=== PATIENT | female | born 1985 | race Caucasian/White ===

== ENCOUNTER 2021-02-13 05:41 | Inpatient (IN) ==
--- NOTE | 2021-02-12 14:46 | History and Physical Report ---
The patient is scheduled for section at [facility] on 02/13/2021. HISTORY OF PRESENT ILLNESS: This is a 35-year-old G2, P1, due date is 02/14/2021, patient is schedul ed for section in [facility] on 02/13/2021 at which time she will be 39 we eks in 6 days. Patient's course has been unremarkable. She had previous section, and wishes to have repeat . course has been unremarkable. LABS: Blood type B positive, antibody negative, rubella immune, GBS negative. PAST MEDICAL HISTORY: Patient has history of hypothyroidism, migraines, and anxiety. PAST SURGICAL HISTORY: The patient has had one previous section. She had a cholecystectomy as well as appendectomy, both in 2012. SOCIAL HISTORY: Denies tobacco, drug or alcohol use. FAMILY HISTORY: Noncontributory. PHYSICAL EXAMINATION: GENERAL: Well-developed, well-nourished white female in no acute distress. HEART: S1, S2 heard. Regular rhythm and rate. LUNGS: Clear to auscultation bilaterally. ABDOMEN: Gravid. EXTREMITIES: No cyanosis, clubbing or edema. ASSESSMENT AND PLAN: A 35-year-old G2, P1 at term wishes to have repeat section. Risks and benefits of surgery are discussed as did trial of labor after was also discussed. Patient wishes to proceed with . Consent will be signed on day of surgery with the attending oscar edmonds deputy probation officer. Job ID: [id number]
--- NOTE | 2021-02-12 16:19 | Anesthesiology Consultation ---
Date of Service February 12, 2021 Assessment & Plan (1) Encounter for pre-operative examination: Chart Review Chart Review: receiving operator initiated Per nursing assessment 02/12/2021, patient denies any recent travel. No known Covid infection in the past 90 days. Pt is vaccinated for Covid. No known Covid positive contacts or Covid related symptoms. Preop Covid testing 02/09/21=negative History Surgery Operation Date: 02/13/21 07:30 Proposed Procedures p Repeat Section - Carla Younger MD Height/Weight Height: 5 ft 6 in Weight: 102.512 kg Allergies Allergy/AdvReac Type Severity Reaction Status Date / Time banana Allergy Severe Swelling Verified 02/12/21 15:47 of Lip/Tongue/Throat kiwi Allergy Severe Swelling Verified 02/12/21 15:47 of Lip/Tongue/Throat sulfamethoxazole Allergy Intermediate Hives Verified 02/12/21 15:47 [From Bactrim] trimethoprim [From Bactrim] Allergy Intermediate Hives Verified 02/12/21 15:47 adhesive tape Allergy Mild skin Verified 02/12/21 15:47 sensitivity mammal products Allergy Mild Gastrointestinal Uncoded 02/12/21 15:47 Upset Medications Home Medications Medication Instructions Recorded Confirmed Last Taken bupropion HCl 100 mg tablet,12 hr 100 mg PO QAM 10/09/20 02/12/21 10/09/20 08:00 sustained-release (Wellbutrin SR) epinephrine 0.3 mg/0.3 mL 0.3 mg IM UD PRN 10/09/20 02/12/21 Unknown injection, auto-injector levothyroxine 112 mcg tablet 112 mcg PO DAILY 10/09/20 02/12/21 10/09/20 07:00 (Synthroid) ondansetron HCl 4 mg tablet 4 mg PO Q6H PRN 10/09/20 02/12/21 10/09/20 20:00 (Zofran) prenat.vits,chun,mct-ukwv-ntiob 1 tab PO DAILY 10/09/20 02/12/21 Unknown lorazepam 0.5 mg tablet 0.25 mg PO DAILY PRN 02/12/21 02/12/21 Unknown omeprazole 20 mg tablet,delayed 20 mg PO HS 02/12/21 02/12/21 Unknown release Past Medical History Medical History Anxiety and depression Arthritis SPINE AREA Endometriosis Esophageal reflux History of kidney stones Hypothyroidism Iron deficiency Migraine Past Family History Family History Sister Family history of diabetes mellitus Other No family history of adverse response to anesthesia Past Surgical History Surgical History History of delivery X 1 History of cholecystectomy History of colonoscopy History of cystoscopy FOR KIDNEY STONES WITH STENTS History of esophagogastroduodenoscopy (EGD) History of laparoscopy Hx of appendectomy [place] teeth removed Social History Smoking Status: Never smoker Hx Alcohol Use: No Hx Substance Use: No substance use type: does not use
[2021-02-13] MEDS ORDERED: CITRIC ACID/SODIUM CITRATE 15 ML UDC PO SCH (06:00)
[2021-02-13] MEDS ORDERED: ceFAZolin 2000MG 2,000 MG/15 ML SYR IV SCH (06:15)
[2021-02-13] MEDS: LACTATED RINGER'S 1,000 ML IV SCH ×2 (06:18→07:10)
[2021-02-13 06:37] LABS: Basophils # (auto) 0.01 K/uL (0-0.2); Basophils % (auto) 0.1 %; Eosinophils # (auto) 0.02 K/uL (0-0.5); Eosinophils % (auto) 0.1 %; Hematocrit (blood only) 31.2 % (37-47); Hemoglobin 9.5 g/dL (12.0-16.0); Immature Granulocytes # (auto) 0.07 K/uL (0.00-0.02); Immature Granulocytes % (auto) 0.5 %; Lymphocytes # (auto) 2.63 K/uL (1.2-3.4); Lymphocytes % (auto) 19.1 %; Mean Corpuscular Hemoglobin 24.1 pg (25-34); Mean Platelet Volume 11.5 fL (7.4-10.4); Monocytes # (auto) 0.77 K/uL (0.11-0.59); Monocytes % (auto) 5.6 %; Neutrophils # (auto) 10.26 K/uL (1.4-6.5); Neutrophils % (auto) 74.6 %; Platelet Count 276 K/uL (130-400); RDW Coefficient of Variation 15.9 % (11.5-14.5); RDW Standard Deviation 46.2 fL (36.4-46.3); Red Blood Count 3.95 M/uL (4.2-5.4); White Blood Count 13.76 K/uL (4.8-10.8)
[2021-02-13 06:46] LABS: Mean Corpuscular Hgb Conc 30.4 g/dL (32-36)
[2021-02-13] MEDS ORDERED: MoRPHine SULFATE PF 1 MG/ML 10 ML AMP/VIAL ONE (06:47)
--- NOTE | 2021-02-13 07:30 | History & Physical Bridge Note ---
Date of Service February 13, 2021 History & Physical Bridge Note I have examined the patient, reviewed the History & Physical and in the interval since the performance of the History & Physical I have noted the following changes of clinical significance: no changes noted She has signed an informed consent.
[2021-02-13] MEDS ORDERED: OXYTOCIN 10 UNITS/ML VIAL ONE (07:48)
[2021-02-13] MEDS ORDERED: PHENYLEPHRINE 100MCG/ML 5ML SYR ONE (07:48)
[2021-02-13] MEDS ORDERED: ONDANSETRON INJ 2 MG/ML 2 ML VIAL ONE ×2 (07:48→08:39)
[2021-02-13] MEDS ORDERED: NALOXONE HCL 1 MG in SODIUM CHLORIDE 0.9% 1000ML 1,000 ML IV PRN (08:34)
[2021-02-13] MEDS ORDERED: NALOXONE HCL 0.08 MG in SYRINGE 1.8 ML IV PRN (08:34)
[2021-02-13] MEDS ORDERED: MoRPHine SULFATE PF 1 MG/ML 10 ML AMP/VIAL INT SPINAL ONE (08:34)
[2021-02-13] MEDS ORDERED: ONDANSETRON INJ 2 MG/ML 2 ML VIAL IV PRN (08:34)
[2021-02-13] MEDS ORDERED: ePHEDrine sulfate 50 MG/ML AMP IV PRN (08:34)
[2021-02-13] MEDS ORDERED: PROMETHAZINE HCL 12.5 MG in SODIUM CHLORIDE 0.9% 50 ML IV PRN (08:34)
[2021-02-13] MEDS ORDERED: MoRPHine SULFATE 2 MG/ML CARP IV PRN (08:34)
[2021-02-13] MEDS ORDERED: NALBUPHINE HCL INJ 10 MG/ML AMP IV PRN (08:34)
[2021-02-13] MEDS ORDERED: NALOXONE HCL 0.4 MG/1 ML VIAL/CARP IV PRN (08:34)
[2021-02-13] MEDS ORDERED: LACTATED RINGER'S 500 ML IV PRN (08:34)
[2021-02-13] MEDS ORDERED: MIDAZOLAM HCL 1 MG/ML 2ML VIAL ONE (08:44)
[2021-02-13] MEDS ORDERED: SODIUM CHLORIDE 0.9% 1000ML 1,000 ML IV SCH (08:45)
[2021-02-13] MEDS ORDERED: NO NARCOTICS OR SEDATIVES SCH (08:45)
[2021-02-13] MEDS ORDERED: ACETAMINOPHEN 1,000 MG/100 ML VIAL IV STA (09:00)
[2021-02-13] MEDS ORDERED: DIPHTHERIA/TETANUS/PERTUSSIS 0.5 ML SYR/VIAL IM ONE (09:08)
[2021-02-13] MEDS ORDERED: BENZOCAINE 20% AER SPR 82.5 GM CAN EXT PRN (09:08)
[2021-02-13] MEDS ORDERED: ACETAMINOPHEN 1,000 MG/100 ML VIAL IV PRN (09:08)
[2021-02-13] MEDS ORDERED: MEASLES, MUMPS & RUBELLA VIRUS VIAL SQ ONE (09:08)
[2021-02-13] MEDS ORDERED: HYDROCORTISONE ACETATE 25 MG SUPP PR PRN (09:08)
[2021-02-13] MEDS ORDERED: PROMETHAZINE HCL 25 MG in SODIUM CHLORIDE 0.9% 50 ML IV PRN (09:08)
[2021-02-13] MEDS ORDERED: MAGNESIUM HYDROXIDE SUSP 30 ML UDC PO PRN (09:08)
[2021-02-13] MEDS ORDERED: diphenhydrAMINE Capsule 25 MG CAP PO PRN (09:08)
[2021-02-13] MEDS ORDERED: SUPERCREAM 0.870% 15 GM JAR EXT PRN (09:08)
[2021-02-13] MEDS ORDERED: SENNA 8.6 MG TAB PO PRN (09:08)
--- NOTE | 2021-02-13 09:08 | Post Operative Brief Note ---
Immediate Post Op Note v1 Date of Surgery February 13, 2021 Pre & Post Diagnosis Operation Date: 02/13/21 07:30 Pre-Op Diagnosis: Previous ; Desires Repeat Section Post-Op Diagnosis: Previous ; Desires Repeat Section I identified the patient and participated in the time-out.: Yes Procedure Operation Date: 02/13/21 07:30 Actual Procedures p Repeat Section; Live Male Infant at 0827 in OR#3(Bilateral) - Carla Younger MD Surgeon Carla Younger MD Sanitation Worker Cleaning Machinery Dr Becerril Estimated Blood Loss 600 Findings Consistent with Post-Op Diagnosis Drains Manuel Catheter (200 ml) Anesthesia Type Spinal Complications none
[2021-02-13] MEDS ORDERED: EPINEPHrine INJ 1 MG/ML AMP IM PRN (09:11)
[2021-02-13] MEDS ORDERED: CALCIUM CARBONATE 500 MG CHEWABLE TAB PO PRN (09:12)
[2021-02-13] MEDS ORDERED: LACTATED RINGER'S 1,000 ML IV SCH (09:15)
--- NOTE | 2021-02-13 09:29 | Anesthesiology Progress Note ---
Date of Service February 13, 2021 Anesthesia Post Procedure Vital Signs Vital Signs: Temp Pulse Resp BP Pulse Ox 02/13/21 09:26 85 99 02/13/21 09:21 79 125/57 L 100 02/13/21 05:59 36.9 C 96 H 16 117/62 02/13/21 05:57 96 H 117/62 Transfer of Care Handoff Completed per policy Notes Mental Status: alert / awake / arousable and participated in evaluation Patient Amnestic to Procedure: No Nausea / Vomiting: adequately controlled Pain: adequately controlled Airway Patency, RR, SpO2: stable & adequate BP & HR: stable & adequate Hydration State: stable & adequate Neuraxial Anesthesia: was administered and sensory block is resolving Anesthetic Complications: no major complications apparent and Pt Satisfied with anesthetic care
[2021-02-13] MEDS: KETOROLAC 30 MG/ML VIAL IV PRN ×3 (09:31→23:03)
--- NOTE | 2021-02-13 11:06 | Operative Report (OR) ---
DATE OF SURGERY: 02/13/2021. PREOPERATIVE DIAGNOSES: The patient is a 35-year-old G2, P1-0-0-1 at 39 weeks and 6 days of gestation,with history of prior section and who was scheduled for repeat section and declined TOLAC/ ( trial of labor after /vaginal after ). POSTOPERATIVE DIAGNOSES: The patient is a 35-year-old G2, P1-0-0-1 at 39 weeks and 6 days of gestation,with history of prior section and who was scheduled for repeat section and declined TOLAC/ ( trial of labor after /vaginal after ). PROCEDURE: Repeat low transverse with Pfannenstiel skin incision. SURGEON: Carla Younger MD. ENVIRONMENT ARTIST: Luciana Becerril MD. ESTIMATED BLOOD LOSS: 600 mL DRAINS: Manuel catheter drained 200 mL of clear urine. ANESTHESIA: Spinal. ANESTHESIOLOGIST: Dr. Newsome. COMPLICATIONS: None. FINDINGS: Baby was a viable male delivered at 08:27 a.m. in cephalic presentation, Apgars were 9/9, weight was 3457 grams. MATERNAL FINDINGS: Normal uterus, fallopian tubes, and ovaries and a thin lower uterine segment. DESCRIPTION OF PROCEDURE: The patient was taken to the operating room where spinal anesthesia was given without difficulty. She was placed in dorsal supine position with a leftward tilt. She was prepared and draped in the usual sterile fashion. Time out was done and the skin was checked for anesthesia. The patient was free of pain and the Pfannenstiel skin incision was made from the old scar, carried through to the underlying layer of fascia with the Bovie. Fascia was incised in the midline and extension was extended laterally with the help of Huang scissors and the tip of Bovie. Upper aspect of the fascial incision was then grasped with 2 Cindi clamps, elevated, and underlying rectus muscles were dissected off sharply with Huang scissors and bluntly with fingers and then lower aspect of the fascial incision was grasped with 2 Cindi clamps, elevated and underlying rectus dissected off sharply with Huang scissors. Rectus muscles were in the midline. Peritoneum was entered bluntly with fingers. Peritoneal incision was extended superiorly and inferiorly with good visualization of the bladder and bladder blade was inserted. Lower uterine segment was thin and was both intact. Unable to find the vesicouterine peritoneum, the bladder was already down, away from the lower uterine segment. It was further retracted with the bladder retractor and distal lower segment was incised in a transverse fashion. Incision was extended laterally with the fingers. Membranes were ruptured. Clear fluid was obtained. Baby's head was delivered without difficulty. There was a nuchal cord around around the neck x1, which was reduced and then shoulders were delivered with minimal traction. Baby's mouth and nose were suctioned. Cord was clamped x2 and cut at 1 minute delay. Baby was handed off to the waiting pediatric team. Cord blood was obtained. Placenta was delivered manually as intact and complete. Uterus was exteriorized and cleared of all clots and debris, fundus was firm. Uterine incision was repaired with 0 Vicryl in a running locked fashion and a second imbricating layer was placed with another 0 Vicryl in a running locked fashion. There was some oozing on the left of the incision, which were controlled with [id number] stitches x3 and excellent hemostasis was achieved. Cul-de-sac was irrigated with warm normal saline and suctioned. Uterus was returned to the abdomen. Pelvis was irrigated with warm normal saline and suctioned. Uterine incision was checked again to be hemostatic. Then, parietal peritoneum was reapproximated with 3-0 Vicryl in a running fashion and the rectus fascia was reapproximated with the same suture in a running fashion and the fascia was reapproximated with the 0 Vicryl in a running fashion. Subcuticular fat tissue was brought together with 2-0 plain catgut in a running fashion. The skin was closed with suzette. The patient tolerated the procedure well. Sponge, lap, needle count was correct x3. No complications happened. She has received 2 grams of Cefazolin before surgery and she was taken to labor and delivery room in stable condition. My volleyball assistant coach was needed for retraction, visualization and hemostasis control during the procedure. Job ID: [id number] [facility]
[2021-02-13] MEDS ORDERED: OXYTOCIN 10 UNITS/ML VIAL IM ONE (11:08)
[2021-02-13] MEDS: OXYTOCIN 20 UNITS in LACTATED RINGER'S 1,000 ML IV SCH ×2 (11:24→20:23)
[2021-02-13] MEDS: diphenhydrAMINE 50 MG/ML VIAL IV PRN ×2 (11:29→23:42)
[2021-02-13] MEDS: SIMETHICONE 80 MG CHEW PO SCH ×3 (13:15→20:16)
[2021-02-13] MEDS: DOCUSATE SODIUM 100 MG CAP PO SCH (20:16)
[2021-02-13] MEDS: FAMOTIDINE 20 MG TAB PO SCH (21:07)
[2021-02-14] MEDS ORDERED: ONDANSETRON INJ 2 MG/ML 2 ML VIAL IV PRN (02:34)
[2021-02-14] MEDS ORDERED: MEPERIDINE HCL 50 MG/ML CARP IV PRN (02:34)
[2021-02-14] MEDS ORDERED: LORazepam 0.5 MG TAB PO PRN (02:34)
[2021-02-14] MEDS ORDERED: diphenhydrAMINE 50 MG/ML VIAL IV PRN (02:34)
[2021-02-14] MEDS ORDERED: DC INTRASPINAL MORPHINE ONE (02:34)
[2021-02-14] MEDS: oxyCODONE/ACETAMINOPHEN 5mg/325mg TAB PO PRN ×5 (03:04→19:34)
[2021-02-14] MEDS: IBUPROFEN 600 MG TAB PO PRN ×5 (03:05→19:33)
[2021-02-14] MEDS: LEVOTHYROXINE SODIUM 112 MCG TABLET PO SCH (05:47)
[2021-02-14 06:20] LABS: Hematocrit (blood only) 23.8 % (37-47); Hemoglobin 7.3 g/dL (12.0-16.0); Mean Corpuscular Hemoglobin 23.9 pg (25-34); Mean Corpuscular Hgb Conc 30.7 g/dL (32-36); Mean Corpuscular Volume 77.8 fL (80-100); Mean Platelet Volume 10.9 fL (7.4-10.4); Platelet Count 223 K/uL (130-400); RDW Coefficient of Variation 16.2 % (11.5-14.5); RDW Standard Deviation 45.7 fL (36.4-46.3); Red Blood Count 3.06 M/uL (4.2-5.4); White Blood Count 12.02 K/uL (4.8-10.8)
[2021-02-14 06:49] LABS: Basophilic Stippling Occasional; Basophils # (auto) 0.02 K/uL (0-0.2); Basophils % (auto) 0.2 %; Eosinophils # (auto) 0.12 K/uL (0-0.5); Immature Granulocytes # (auto) 0.07 K/uL (0.00-0.02); Immature Granulocytes % (auto) 0.6 %; Lymphocytes % (auto) 25.8 %; Monocytes % (auto) 5.8 %; Neutrophils # (auto) 8.01 K/uL (1.4-6.5); Neutrophils % (auto) 66.6 %; Polychromasia 1+
[2021-02-14] MEDS: PRENATAL VITAMIN 1 TAB PO SCH ×2 (07:52→07:56)
[2021-02-14] MEDS: DOCUSATE SODIUM 100 MG CAP PO SCH ×2 (07:52→21:07)
[2021-02-14] MEDS: SIMETHICONE 80 MG CHEW PO SCH ×4 (07:52→21:07)
[2021-02-14] MEDS ORDERED: FERROUS SULFATE 325 MG TAB PO SCH (08:00)
[2021-02-14] MEDS ORDERED: buPROPion HCl 100 MG TABLET PO ONE (10:25)
--- NOTE | 2021-02-14 10:29 | Obstetrical Progress Note ---
Date of Service February 14, 2021 Subjective Ambulation: limited ambulation Voiding: no voiding problems Diet Tolerance:: regular diet Lochia:: Small Feeding Type:: breast feeding Current Pain Level(1-10): 0 doing well Physical Exam Constitutional WD/WN, vitals as above comfortable Gastrointestinal (Abdomen) incision c/d/i abdomen soft and non-tender no edema neg Elmo's Skin no rashes, warm and dry Results & Data ([facility]) Vital Signs (Past 12 Hours) Vital Signs Temp Pulse Pulse Resp BP BP Pulse Ox 02/14/21 10:17 36.9 C 91 H 18 107/72 99 02/14/21 03:45 36.7 C 82 18 123/78 99 02/14/21 02:10 16 99 02/14/21 01:20 16 98 02/14/21 00:10 18 98 02/13/21 23:05 36.7 C 76 18 113/68 98 Laboratory Results Laboratory Results - last 72 hr 02/13/21 02/13/21 02/14/21 06:04 06:06 05:59 WBC 13.76 H 12.02 H RBC 3.95 L 3.06 L Hgb 9.5 L 7.3 L Hct 31.2 L 23.8 L MCV 79.0 L 77.8 L MCH 24.1 L 23.9 L MCHC 30.4 L 30.7 L RDW Std Deviation 46.2 45.7 RDW Coeff of Nina 15.9 H 16.2 H Plt Count 276 223 MPV 11.5 H 10.9 H Immature Gran % (Auto) 0.5 0.6 Neut % (Auto) 74.6 66.6 Lymph % (Auto) 19.1 25.8 Esmeralda % (Auto) 5.6 5.8 Eos % (Auto) 0.1 1.0 Baso % (Auto) 0.1 0.2 Neut # (Auto) 10.26 H 8.01 H Lymph # (Auto) 2.63 3.10 Esmeralda # (Auto) 0.77 H 0.70 H Eos # (Auto) 0.02 0.12 Baso # (Auto) 0.01 0.02 Immature Gran # (Auto) 0.07 H 0.07 H Polychromasia 1+ Basophilic Stippling Occasional Blood Type A Negative Antibody Screen NEGATIVE Screen 02/14/21 08:24 WBC RBC Hgb Hct MCV MCH MCHC RDW Std Deviation RDW Coeff of Nina Plt Count MPV Immature Gran % (Auto) Neut % (Auto) Lymph % (Auto) Esmeralda % (Auto) Eos % (Auto) Baso % (Auto) Neut # (Auto) Lymph # (Auto) Esmer[place]da # (Auto) Eos # (Auto) Baso # (Auto) Immature Gran # (Auto) Polychromasia Basophilic Stippling Blood Type A Negative Antibody Screen Cancelled Screen Negative
[2021-02-14] MEDS ORDERED: bisacodyL 5 MG TABEC PO SCH (20:00)
[2021-02-14] MEDS ORDERED: buPROPion HCl 100 MG TABLET PO SCH (21:00)
[2021-02-14] MEDS: FAMOTIDINE 20 MG TAB PO SCH (21:08)
[2021-02-15] MEDS: IBUPROFEN 600 MG TAB PO PRN ×5 (00:09→18:15)
[2021-02-15] MEDS: oxyCODONE/ACETAMINOPHEN 5mg/325mg TAB PO PRN ×4 (00:10→18:15)
[2021-02-15] MEDS: LEVOTHYROXINE SODIUM 112 MCG TABLET PO SCH (06:01)
[2021-02-15 06:24] LABS: Basophils # (auto) 0.02 K/uL (0-0.2); Basophils % (auto) 0.2 %; Eosinophils # (auto) 0.17 K/uL (0-0.5); Eosinophils % (auto) 1.4 %; Hematocrit (blood only) 24.2 % (37-47); Hemoglobin 7.1 g/dL (12.0-16.0); Immature Granulocytes # (auto) 0.09 K/uL (0.00-0.02); Immature Granulocytes % (auto) 0.7 %; Lymphocytes # (auto) 3.53 K/uL (1.2-3.4); Lymphocytes % (auto) 28.2 %; Mean Corpuscular Hemoglobin 23.7 pg (25-34); Mean Corpuscular Hgb Conc 29.3 g/dL (32-36); Mean Corpuscular Volume 80.9 fL (80-100); Mean Platelet Volume 10.8 fL (7.4-10.4); Monocytes # (auto) 0.64 K/uL (0.11-0.59); Monocytes % (auto) 5.1 %; Neutrophils # (auto) 8.06 K/uL (1.4-6.5); Neutrophils % (auto) 64.4 %; Platelet Count 223 K/uL (130-400); RDW Coefficient of Variation 16.2 % (11.5-14.5); RDW Standard Deviation 47.5 fL (36.4-46.3); Red Blood Count 2.99 M/uL (4.2-5.4); White Blood Count 12.51 K/uL (4.8-10.8)
[2021-02-15 07:01] LABS: RBC Morphology Unremarkable
[2021-02-15] MEDS ORDERED: ACETAMINOPHEN 325 MG TAB PO PRN (07:48)
[2021-02-15] MEDS ORDERED: diphenhydrAMINE Capsule 25 MG CAP PO SCH (08:00)
[2021-02-15] MEDS ORDERED: FERROUS SULFATE 325 MG TAB PO SCH (08:00)
[2021-02-15] MEDS ORDERED: SODIUM CHLORIDE 0.9% 250 ML IV PRN (08:02)
--- NOTE | 2021-02-15 08:07 | Obstetrical Progress Note ---
Date of Service February 15, 2021 Assessment & Plan Admission and Anticipated Discharge Date Admission Date: February 13, 2021 Subjective Patient is seen and examined. She feels tired and has been dizzy on ambulation. She has been anemic during and unable to take tbs, she took iron gummies she bought from [employer] She is allergic to red meat and tree nuts Pain is under control with oral meds. Voiding without difficulty Tolerating regular diet with out N&V Flatus + BM neg Bleeding is minimal No fever/ chills/ CP/ SOB/ N&V/ Leg pain Bottle feeding without problems Vital Signs Temp Pulse Pulse Resp BP BP Pulse Ox 02/15/21 00:20 36.7 C 87 18 111/65 02/14/21 15:28 36.8 C 84 18 117/70 100 02/14/21 10:17 36.9 C 91 H 18 107/72 99 02/14/21 08:40 36.9 C 91 H 18 107/72 99 Lab Results 02/13/21 02/13/21 02/14/21 Range/Units 06:04 06:06 05:59 WBC 13.76 H 12.02 H (4.8-10.8) K/uL RBC 3.95 L 3.06 L (4.2-5.4) M/uL Hgb 9.5 L 7.3 L (12.0-16.0) g/dL Hct 31.2 L 23.8 L (37-47) % MCV 79.0 L 77.8 L (80-100) fL MCH 24.1 L 23.9 L (25-34) pg MCHC 30.4 L 30.7 L (32-36) g/dL RDW Std Deviation 46.2 45.7 (36.4-46.3) fL RDW Coeff of Nina 15.9 H 16.2 H (11.5-14.5) % Plt Count 276 223 (130-400) K/uL MPV 11.5 H 10.9 H (7.4-10.4) fL Immature Gran % (Auto) 0.5 0.6 % Neut % (Auto) 74.6 66.6 % Lymph % (Auto) 19.1 25.8 % [place] % (Auto) 5.6 5.8 % Eos % (Auto) 0.1 1.0 % Baso % (Auto) 0.1 0.2 % Neut # (Auto) 10.26 H 8.01 H (1.4-6.5) K/uL Lymph # (Auto) 2.63 3.10 (1.2-3.4) K/uL [place] # (Auto) 0.77 H 0.70 H (0.11-0.59) K/uL Eos # (Auto) 0.02 0.12 (0-0.5) K/uL Baso # (Auto) 0.01 0.02 (0-0.2) K/uL Immature Gran # (Auto) 0.07 H 0.07 H (0.00-0.02) K/uL RBC Morphology Polychromasia 1+ Basophilic Stippling Occasional Blood Type A Negative Antibody Screen NEGATIVE Screen (Negative) Crossmatch 02/14/21 02/15/21 Range/Units 08:24 06:03 WBC 12.51 H (4.8-10.8) K/uL RBC 2.99 L (4.2-5.4) M/uL Hgb 7.1 L (12.0-16.0) g/dL Hct 24.2 L (37-47) % MCV 80.9 (80-100) fL MCH 23.7 L (25-34) pg MCHC 29.3 L (32-36) g/dL RDW Std Deviation 47.5 H (36.4-46.3) fL RDW Coeff of Nina 16.2 H (11.5-14.5) % Plt Count 223 (130-400) K/uL MPV 10.8 H (7.4-10.4) fL Immature Gran % (Auto) 0.7 % Neut % (Auto) 64.4 % Lymph % (Auto) 28.2 % [place] % (Auto) 5.1 % Eos % (Auto) 1.4 % Baso % (Auto) 0.2 % Neut # (Auto) 8.06 H (1.4-6.5) K/uL Lymph # (Auto) 3.53 H (1.2-3.4) K/uL [place] # (Auto) 0.64 H (0.11-0.59) K/uL Eos # (Auto) 0.17 (0-0.5) K/uL Baso # (Auto) 0.02 (0-0.2) K/uL Immature Gran # (Auto) 0.09 H (0.00-0.02) K/uL RBC Morphology Unremarkable Polychromasia Basophilic Stippling Blood Type A Negative Antibody Screen Cancelled Screen Negative (Negative) Crossmatch See Detail PE: General: Alert, orientedx3, NAD CVS: S1S2 RRR Lungs; CTAB Abd: soft, NT, ND, BS+, fundus firm, below Umbilicus Incision: Clean, dry, intact Perineum intact, Lochia rubra minimal Ext; NT, no edema AP: 35 yo s/p C Section, pod# 2 VSS Afebrile doing well Anemic, asymptomatic, unable to take iron tb and iron rich food Discussed blood transfusion and possible risks and she desires blood transfusion Signed an informed consent Continue routine postop care 2 unitis of PRBCC All questions were answered Desires D/C home today , plan to d/c after dinner Results & Data ([facility]) Vital Signs (Past 12 Hours) Vital Signs Temp Pulse Resp BP 02/15/21 00:20 36.7 C 87 18 111/65
[2021-02-15] MEDS: PRENATAL VITAMIN 1 TAB PO SCH (08:40)
[2021-02-15] MEDS: DOCUSATE SODIUM 100 MG CAP PO SCH (08:40)
[2021-02-15] MEDS: SIMETHICONE 80 MG CHEW PO SCH ×3 (08:40→16:58)
[2021-02-15] MEDS ORDERED: buPROPion SR 100 MG TABCR PO SCH (09:00)
[2021-02-15] MEDS ORDERED: bisacodyL 10 MG SUPP PR PRN (09:08)
[2021-02-15 16:16] LABS: Basophils # (auto) 0.02 K/uL (0-0.2); Basophils % (auto) 0.1 %; Eosinophils # (auto) 0.21 K/uL (0-0.5); Eosinophils % (auto) 1.5 %; Hematocrit (blood only) 30.5 % (37-47); Hemoglobin 9.6 g/dL (12.0-16.0); Immature Granulocytes % (auto) 1.4 %; Lymphocytes # (auto) 3.46 K/uL (1.2-3.4); Lymphocytes % (auto) 24.4 %; Mean Corpuscular Hemoglobin 25.7 pg (25-34); Mean Corpuscular Hgb Conc 31.5 g/dL (32-36); Mean Corpuscular Volume 81.6 fL (80-100); Mean Platelet Volume 11.2 fL (7.4-10.4); Monocytes # (auto) 0.86 K/uL (0.11-0.59); Monocytes % (auto) 6.1 %; Neutrophils # (auto) 9.44 K/uL (1.4-6.5); Neutrophils % (auto) 66.5 %; Platelet Count 250 K/uL (130-400); RDW Standard Deviation 47.3 fL (36.4-46.3); Red Blood Count 3.74 M/uL (4.2-5.4); White Blood Count 14.19 K/uL (4.8-10.8)
--- NOTE | 2021-02-15 16:55 | Obstetrical Progress Note ---
Date of Service February 15, 2021 Assessment & Plan Admission and Anticipated Discharge Date Admission Date: February 13, 2021 Subjective Patient is reevaluated Feels much better Desires to go home Vital Signs Temp Pulse Pulse Resp BP BP Pulse Ox 02/15/21 15:30 37.0 C 88 18 127/77 98 02/15/21 14:30 36.8 C 88 16 112/76 99 02/15/21 12:30 36.6 C 77 16 117/74 99 02/15/21 12:00 36.8 C 80 18 112/72 100 02/15/21 11:55 36.9 C 88 16 103/66 99 02/15/21 11:39 36.8 C 77 16 111/70 99 02/15/21 11:15 36.7 C 77 16 111/66 100 02/15/21 10:15 37 C 83 18 128/78 99 02/15/21 09:45 36.9 C 80 16 108/64 97 02/15/21 09:30 36.5 C 84 16 115/72 99 02/15/21 08:25 36.8 C 78 16 104/65 100 02/15/21 02/15/21 02/14/21 Range/Units 16:10 06:03 08:24 WBC 14.19 H 12.51 H (4.8-10.8) K/uL RBC 3.74 L 2.99 L (4.2-5.4) M/uL Hgb 9.6 L 7.1 L (12.0-16.0) g/dL Hct 30.5 L 24.2 L (37-47) % MCV 81.6 80.9 (80-100) fL MCH 25.7 23.7 L (25-34) pg MCHC 31.5 L 29.3 L (32-36) g/dL RDW Std Deviation 47.3 H 47.5 H (36.4-46.3) fL RDW Coeff of Nina 16.0 H 16.2 H (11.5-14.5) % Plt Count 250 223 (130-400) K/uL MPV 11.2 H 10.8 H (7.4-10.4) fL Immature Gran % (Auto) 1.4 0.7 % Neut % (Auto) 66.5 64.4 % Lymph % (Auto) 24.4 28.2 % [place] % (Auto) 6.1 5.1 % Eos % (Auto) 1.5 1.4 % Baso % (Auto) 0.1 0.2 % Neut # (Auto) 9.44 H 8.06 H (1.4-6.5) K/uL Lymph # (Auto) 3.46 H 3.53 H (1.2-3.4) K/uL [place] # (Auto) 0.86 H 0.64 H (0.11-0.59) K/uL Eos # (Auto) 0.21 0.17 (0-0.5) K/uL Baso # (Auto) 0.02 0.02 (0-0.2) K/uL Immature Gran # (Auto) 0.20 H 0.09 H (0.00-0.02) K/uL RBC Morphology Unremarkable Blood Type A Negative Antibody Screen Cancelled Screen Negative (Negative) Crossmatch See Detail Results & Data ([facility]) Vital Signs (Past 12 Hours) Vital Signs Temp Pulse Pulse Resp BP BP Pulse Ox 02/15/21 15:30 37.0 C 88 18 127/77 98 02/15/21 14:30 36.8 C 88 16 112/76 99 02/15/21 12:30 36.6 C 77 16 117/74 99 02/15/21 12:00 36.8 C 80 18 112/72 100 02/15/21 11:55 36.9 C 88 16 103/66 99 02/15/21 11:39 36.8 C 77 16 111/70 99 02/15/21 11:15 36.7 C 77 16 111/66 100 02/15/21 10:15 37 C 83 18 128/78 99 02/15/21 09:45 36.9 C 80 16 108/64 97 02/15/21 09:30 36.5 C 84 16 115/72 99 02/15/21 08:25 36.8 C 78 16 104/65 100
== END 2021-02-15 18:25 | disposition home or self-care (01) | DRG 788 ==
LOC: ASU 05:41 → 4S1 05:45 → 4S2 12:54